=== PATIENT | female | born 1980 | race Caucasian/White ===

== ENCOUNTER 2017-04-13 13:12 | Emergency (ER) | payer BC ==
[2017-04-13 13:19] VITALS: BP 114/64
--- NOTE | 2017-04-13 13:52 | UC ---
Dizzy HPI HPI Summary: 36F presents with dizziness last night. She states that she has a feeling since the room is spinning since last night. The vertigo is worst with position changes and with turning her head. She states that she feels nauseous. She had a mild headache with it but took ibuprofen and has resolved. She denies any visual changes. She admits to ear fullness. She denies any fever, neck stiffness, or sinus congestion. no history of migraines. she has no family history of strokes. She is not any OCP. She denies any chest pain or SOB or abdominal pain. - History Of Current Complaint Chief Complaint: UCDizziness Stated Complaint: DIZZY Time Seen by Provider: 04/13/17 13:39 Hx Last Menstrual Period: 03/17/17 - Allergies/Home Medications Allergies/Adverse Reactions: Allergies Allergy/AdvReac Type Severity Reaction Status Date / Time Sulfamethoxazole Allergy Rash Verified 04/13/17 13:19 w/Trimethoprim [From Bactrim] PMH/Surg Hx/FS Hx/Imm Hx Endocrine History: Other Other Endocrine History: no DM Cardiovascular History: Other Other Cardiovascular History: no HTN - Surgical History Surgical History: Yes Surgery Procedure, Year, and Place: KIDNEY STONES 2011 - Family History Known Family History: Positive: None Family History: denies cardio vascular issues in family lineage - Social History Alcohol Use: Occasionally Substance Use Type: None Smoking Status (MU): Never Smoked Tobacco Review of Systems Constitutional: Negative Respiratory: Negative Cardiovascular: Negative Neurological: Other - dizziness All Other Systems Reviewed And Are Negative: Yes Physical Exam Triage Information Reviewed: Yes Appearance: Well-Appearing Vital Signs: Initial Vital Signs Temp 99.4 F 04/13/17 13:16 Pulse 82 04/13/17 13:16 Resp 18 04/13/17 13:16 BP 114/64 04/13/17 13:16 Pulse Ox 100 04/13/17 13:16 Vital Signs Reviewed: Yes Eyes: Positive: Conjunctiva Clear ENT: Positive: Normal ENT inspection, Pharynx normal, TMs normal Neck: Positive: Supple, Nontender, No Lymphadenopathy Respiratory: Positive: Lungs clear, Normal breath sounds Cardiovascular: Positive: RRR Neurological: Positive: Alert, Other: - CNII-XII, motor and sensory intact. neg hill-pike maneuver Dizzy Course/Dx - Course Course Of Treatment: 36F presents with dizziness last night. She states that she has a feeling since the room is spinning since last night. The vertigo is worst with position changes and with turning her head. She states that she feels nauseous. She had a mild headache with it but took ibuprofen and has resolved. She denies any visual changes. She admits to ear fullness. She denies any fever, neck stiffness, or sinus congestion. no history of migraines. normal neuro exam. neg stefan-hillpike. symptoms most consistent with vertigo so will treat with meclizine. explained that if wants further work up needs to go to ED. patient understands and agrees with plan. - Differential Dx/Diagnosis Differential Diagnosis/HQI/PQRI: Benign Paroxysmal Positional Vertigo, Labyrinthitis, Metabolic Abnormality, Other - vertigo Provider Diagnoses: vertigo Discharge - Discharge Plan Condition: Good Disposition: HOME Prescriptions: Meclizine TAB* [Antivert 12.5 TAB*] 25 mg PO TID PRN #15 tab PRN Reason: Vertigo Patient Education Materials: Vertigo (ED) Referrals: Roya Le NP [Primary Care Provider] - Additional Instructions: Take meclizine up to 4 tablets a day for vertigo Drink plenty of fluids Follow up with primary within 5 days Return to ED if develop any new or worsening symptoms
== END 2017-04-13 13:57 | disposition home or self-care (01) ==
LOC: UCEAST 13:12
DX: R42 Dizziness and giddiness (principal); Z88.2 Allergy status to sulfonamides
CPT/HCPCS: 99212; G0463

== ENCOUNTER 2017-10-13 09:11 | Emergency (ER) | payer BC ==
[2017-10-13] MEDS ORDERED: NS 0.9% 1000 ML* 1,000 ML IV ONE (10:09)
[2017-10-13 10:50] LABS: ABS Basophils 0.1 10^3/ul (0-0.2); ABS Eosinophils 0 10^3/ul (0-0.6); ABS Lymphocytes 1.2 10^3/ul (1.0-4.8); ABS Monocytes 0.6 10^3/ul (0-0.8); ABS Neutrophils 8.6 10^3/ul (1.5-7.7); ABS Nucleated RBC 0 10^3/ul; Eosinophil % 0.4 % (0-6); Hematocrit 44 % (35-47); Hemoglobin 14.7 g/dl (12.0-16.0); Lymphocyte % 11.8 % (25-47); Mean Corpuscular HGB Conc 33 g/dl (31-36); Mean Corpuscular Hemoglobin 31 pg (27-31); Mean Corpuscular Volume 93 fL (80-97); Mean Platelet Volume 9 um3 (7.4-10.4); Nucleated Red Blood Cells % 0; Platelet Count 240 10^3/ul (150-450); Red Blood Count 4.74 10^6/ul (4.0-5.4); Red Cell Distribution Width 13 % (10.5-15); White Blood Count 10.6 10^3/ul (3.5-10.8)
[2017-10-13 11:01] LABS: EGFR Non-African American 74.1 (>60)
[2017-10-13 11:05] LABS: Urine Appearance Clear; Urine Blood Negative (Negative); Urine Color Straw; Urine Ketones Negative (Negative); Urine Protein Negative (Negative); Urine Specific Gravity 1.004 (1.010-1.030); Urine Urobilinogen Negative (Negative)
--- NOTE | 2017-10-13 11:58 | ED ---
Dizziness - HPI Summary HPI Summary: Patient here with lightheaded sensation and change heart rate which started yesterday afternoon during a meeting at work (was interviewing a new executive) . She reports her staff was concerned she was having a panic attack. She admits she's had panic attacks in the past with the intermittent racing heart rate however she had chest pain at that time and does not have any at this time. She reports checking her heart rate on her Fit Bit yesterday during sx which was ranging from 30 bpm to 150 bpm. Reports she may not have eaten as much as usual yesterday but denies more caffeine than usual and no use of diet supplements, etc. She went to [address] [place] [address] and had an EKG as well as a chest x-ray. Per patient these were both normal. She was encouraged to go to the emergency department however she decided to go home instead. States she had something to eat and went to bed - heart rate issues resolved however lightheadedness persisted. She is here today for persistent lightheadedness. She reports this is worse with some movement/position change but not consistently. Denies rhinorrhea, sneezing, otalgia, headache, sinus pressure, sore throat, fever, chills, nausea, vomiting, chest pain, shortness of breath, abdominal pain, dysuria, vaginal discharge, flank pain, skin changes, numbness, weakness, tingling, issues with coordination, syncope or near syncope. Recent sick contacts include going to hospital to visit sick grandparent. Furthermore she denies heavy menstruation and no h/o anemia, bleeding or clotting d/o. Does not take OBC. No h/o head injury. - History Of Current Complaint Chief Complaint: EDDizziness Stated Complaint: LIGHT HEADED Time Seen by Provider: 10/13/17 10:35 Hx Obtained From: Patient - Allergies/Home Medications Allergies/Adverse Reactions: Allergies Allergy/AdvReac Type Severity Reaction Status Date / Time sulfamethoxazole Allergy Hives Verified 10/13/17 09:18 [From Bactrim] trimethoprim [From Bactrim] Allergy Hives Verified 10/13/17 09:18 Home Medications: Home Medications Ibuprofen TAB* [Motrin TAB* 800 MG] 800 mg PO Q6H PRN 10/13/17 [History Confirmed 10/13/17] PMH/Surg Hx/FS Hx/Imm Hx Previously Healthy: Yes Endocrine/Hematology History: Denies: Hx Anticoagulant Therapy, Hx Blood Disorders, Hx Blood Transfusions, Hx Bone Marrow Disease, Hx Diabetes, Hx Thyroid Disease, Hx Anemia, Hx Unexplained Bleeding, Hx Coagulopothy, Autoimmune Disease Cardiovascular History: Denies: Hx Aneurysm, Hx Congenital Heart Disease, Hx Hypotension, Hx Hypertension, Hx Valvular Heart Disease Respiratory History: Denies: Hx Asthma, Hx Chronic Obstructive Pulmonary Disease (COPD) GI History: Denies: Hx Gastroesophageal Reflux Disease, Hx Ulcer Sensory History: Reports: Hx Contacts or Glasses Opthamlomology History: Reports: Hx Contacts or Glasses Neurological History: Denies: Hx Headaches, Hx Migraine, Other Neuro Impairments/Disorders - no h/ o concussion Psychiatric History: Reports: Hx Anxiety - Cancer History Hx Chemotherapy: No Hx Radiation Therapy: No - Surgical History Surgery Procedure, Year, and Place: KIDNEY STONES 2011 Infectious Disease History: No Infectious Disease History: Denies: Hx Hepatitis, Hx Human Immunodeficiency Virus (HIV), History Other Infectious Disease, Traveled Outside the [place] in Last 30 Days - Family History Known Family History: Positive: Blood Disorder - Father w/ h/o "blood cancer" Family History: denies cardio vascular issues in family lineage - Social History Occupation: Employed Full-time Lives: With Family - lives w/ sister Alcohol Use: Occasionally Hx Substance Use: No Substance Use Type: Reports: None Hx Tobacco Use: No Smoking Status (MU): Never Smoked Tobacco Review of Systems Constitutional: Negative Eyes: Negative ENT: Negative Cardiovascular: Other - abnormal heart rate yesterday Respiratory: Negative Gastrointestinal: Negative Genitourinary: Negative Musculoskeletal: Negative Skin: Negative Neurological: Other - lightheaded Negative: Headache, Weakness, Paresthesia, Numbness, Syncope, Slurred Speech Positive: Anxious All Other Systems Reviewed And Are Negative: Yes Physical Exam Triage Information Reviewed: Yes Vital Signs On Initial Exam: Initial Vitals Temp Pulse Resp BP Pulse Ox 98.1 F 87 18 121/68 100 10/13/17 09:13 10/13/17 09:13 10/13/17 09:13 10/13/17 09:13 10/13/17 09:13 Vital Signs Reviewed: Yes Appearance: Positive: Well-Appearing, No Pain Distress, Well-Nourished Skin: Positive: Warm, Skin Color Reflects Adequate Perfusion, Dry Head/Face: Positive: Normal Head/Face Inspection Eyes: Positive: Normal, EOMI, TROY, Conjunctiva Clear ENT: Positive: Normal ENT inspection, Hearing grossly normal, Pharynx normal, TMs normal, Uvula midline. Negative: Nasal congestion, Nasal drainage, Tonsillar swelling, Tonsillar exudate, Muffled voice, Hoarse voice, Dental tenderness, Sinus tenderness Dental: Negative: Abscess @ Neck: Positive: Supple, Nontender, No Lymphadenopathy - No gross thyromegaly Respiratory/Lung Sounds: Positive: Clear to Auscultation, Breath Sounds Present. Negative: Rales, Rhonchi, Stridor, Tracheal Deviation, Wheezes, Unable to speak in full sentences, Fatigue Cardiovascular: Positive: Normal, RRR, Pulses are Symmetrical in both Upper and Lower Extremities, S1, S2. Negative: Murmur, Rub, Leg Edema Left, Leg Edema Right - Negative Homans bilaterally Abdomen Description: Positive: Nontender, No Organomegaly, Soft. Negative: Bruit, CVA Tenderness (R), CVA Tenderness (L), Pulsatile Mass Bowel Sounds: Positive: Present Musculoskeletal: Positive: Normal, Strength/ROM Intact Neurological: Positive: Normal, Sensory/Motor Intact, Alert, Oriented to Person Place, Time, CN Intact II-III, Facial Symmetry, Speech Normal. Negative: Vivian- Burkett [place] Test Psychiatric: Positive: Anxious - Polite and cooperative Diagnostics - Vital Signs Vital Signs Temp Pulse Resp BP Pulse Ox 10/13/17 11:30 66 20 109/49 100 10/13/17 11:00 75 13 109/62 100 10/13/17 10:51 67 20 108/60 85 10/13/17 10:00 109/58 10/13/17 09:54 72 20 114/67 100 10/13/17 09:52 70 24 111/59 100 10/13/17 09:48 16 10/13/17 09:45 69 21 106/64 100 10/13/17 09:42 69 100 10/13/17 09:13 98.1 F 87 18 121/68 100 - Laboratory Lab Results: Lab Results 10/13/17 10/13/17 10/13/17 Range/Units 10:25 10:25 10:25 WBC 10.6 (3.5-10.8) 10^3/ul RBC 4.74 (4.0-5.4) 10^6/ul Hgb 14.7 (12.0-16.0) g/dl Hct 44 (35-47) % MCV 93 (80-97) fL MCH 31 (27-31) pg MCHC 33 (31-36) g/dl RDW 13 (10.5-15) % Plt Count 240 (150-450) 10^3/ul MPV 9 (7.4-10.4) um3 Neut % (Auto) 81.8 (38-83) % Lymph % (Auto) 11.8 L (25-47) % [place] % (Auto) 5.5 (0-7) % Eos % (Auto) 0.4 (0-6) % Baso % (Auto) 0.5 (0-2) % Absolute Neuts (auto) 8.6 H (1.5-7.7) 10^3/ul Absolute Lymphs (auto) 1.2 (1.0-4.8) 10^3/ul Absolute Monos (auto) 0.6 (0-0.8) 10^3/ul Absolute Eos (auto) 0 (0-0.6) 10^3/ul Absolute Basos (auto) 0.1 (0-0.2) 10^3/ul Absolute Nucleated RBC 0 10^3/ul Nucleated RBC % 0 Sodium 138 (133-145) mmol/L Potassium 3.8 (3.5-5.0) mmol/L Chloride 106 (101-111) mmol/L Carbon Dioxide 26 (22-32) mmol/L Anion Gap 6 (2-11) mmol/L BUN 11 (6-24) mg/dL Creatinine 0.87 (0.51-0.95) mg/dL Est GFR ( Amer) 95.3 (>60) Est GFR (Non-Af Amer) 74.1 (>60) BUN/Creatinine Ratio 12.6 (8-20) Glucose 88 (70-100) mg/dL Lactic Acid 0.7 (0.5-2.0) mmol/L Calcium 9.6 (8.6-10.3) mg/dL Magnesium 2.2 (1.9-2.7) mg/dL Total Bilirubin 0.80 (0.2-1.0) mg/dL AST 15 (13-39) U/L ALT 14 (7-52) U/L Alkaline Phosphatase 37 (34-104) U/L Troponin I 0.00 (<0.04) ng/mL Total Protein 7.7 (6.4-8.9) g/dL Albumin 4.6 (3.2-5.2) g/dL Globulin 3.1 (2-4) g/dL Albumin/Globulin Ratio 1.5 (1-3) TSH 2.12 (0.34-5.60) mcIU/mL Beta HCG, Quant < 0.60 mIU/mL Urine Color Urine Appearance Urine pH (5-9) Ur Specific [place] (1.010-1.030) Urine Protein (Negative) Urine Ketones (Negative) Urine Blood (Negative) Urine Nitrate (Negative) Urine Bilirubin (Negative) Urine Urobilinogen (Negative) Ur Leukocyte Esterase (Negative) Urine Glucose (Negative) 10/13/17 Range/Units 10:50 WBC (3.5-10.8) 10^3/ul RBC (4.0-5.4) 10^6/ul Hgb (12.0-16.0) g/dl Hct (35-47) % MCV (80-97) fL MCH (27-31) pg MCHC (31-36) g/dl RDW (10.5-15) % Plt Count (150-450) 10^3/ul MPV (7.4-10.4) um3 Neut % (Auto) (38-83) % Lymph % (Auto) (25-47) % [place] % (Auto) (0-7) % Eos % (Auto) (0-6) % Baso % (Auto) (0-2) % Absolute Neuts (auto) (1.5-7.7) 10^3/ul Absolute Lymphs (auto) (1.0-4.8) 10^3/ul Absolute Monos (auto) (0-0.8) 10^3/ul Absolute Eos (auto) (0-0.6) 10^3/ul Absolute Basos (auto) (0-0.2) 10^3/ul Absolute Nucleated RBC 10^3/ul Nucleated RBC % Sodium (133-145) mmol/L Potassium (3.5-5.0) mmol/L Chloride (101-111) mmol/L Carbon Dioxide (22-32) mmol/L Anion Gap (2-11) mmol/L BUN (6-24) mg/dL Creatinine (0.51-0.95) mg/dL Est GFR ( Amer) (>60) Est GFR (Non-Af Amer) (>60) BUN/Creatinine Ratio (8-20) Glucose (70-100) mg/dL Lactic Acid (0.5-2.0) mmol/L Calcium (8.6-10.3) mg/dL Magnesium (1.9-2.7) mg/dL Total Bilirubin (0.2-1.0) mg/dL AST (13-39) U/L ALT (7-52) U/L Alkaline Phosphatase (34-104) U/L Troponin I (<0.04) ng/mL Total Protein (6.4-8.9) g/dL Albumin (3.2-5.2) g/dL Globulin (2-4) g/dL Albumin/Globulin Ratio (1-3) TSH (0.34-5.60) mcIU/mL Beta HCG, Quant mIU/mL Urine Color Straw Urine Appearance Clear Urine pH 7.0 (5-9) Ur Specific [place] 1.004 L (1.010-1.030) Urine Protein Negative (Negative) Urine Ketones Negative (Negative) Urine Blood Negative (Negative) Urine Nitrate Negative (Negative) Urine Bilirubin Negative (Negative) Urine Urobilinogen Negative (Negative) Ur Leukocyte Esterase Negative (Negative) Urine Glucose Negative (Negative) Result Diagrams: 10/13/17 10:25 10/13/17 10:25 Lab Statement: Any lab studies that have been ordered have been reviewed, and results considered in the medical decision making process. Dizzy Course/Dx - Course Course Of Treatment: Patient here with complaint of lightheadedness/dizziness which started yesterday. This was accompanied by intermittent fast heart rates. Reports she was seen at [address] [place] [address] and had an x-ray and EKG which were normal. Was advised to go to the emergency department however she decided to go home instead. Had something to eat and was able to go to bed reports heart rate improved however lightheadedness continued. She was assessed here today and all labs, vital signs and clinical exam appeared to be within normal limits. The definitive cause of her symptoms was not identified however we did discuss adequate nutrition intake and addressing her anxiety. She will follow-up with PCP later this week if symptoms continue to persist. Reviewed danger signs and symptoms of when to return to the emergency department. - Diagnoses Provider Diagnoses: Light-headed feeling Discharge - Discharge Plan Condition: Stable Disposition: HOME Patient Education Materials: Lightheadedness (ED), Anxiety (ED) Referrals: Roya Le NP [Primary Care Provider] - Additional Instructions: Eat balanced diet and stay hydrated Practice stress relief techniques. Follow-up with PCP later this week if symptoms persist. *If symptoms are worse, return to ED
[2017-10-13 12:33] VITALS: BP 107/52
== END 2017-10-13 12:32 | disposition home or self-care (01) ==
LOC: ED 09:11
DX: R42 Dizziness and giddiness (principal); Z88.3 Allergy status to other anti-infective agents; Z88.2 Allergy status to sulfonamides
CPT/HCPCS: 36415; 80053; 81003; 83605; 83735; 84443; 84484; 84702; 85025; 87502; 93005; 99283

== ENCOUNTER → 2018-08-07 15:33 | Emergency (ER) | payer BC ==
[~2018-08-07 15:33] MED LIST: NS 0.9% 1000 ML* 1,000 ML IV ONE
[2018-08-07 16:05] LABS: ABS Basophils 0.1 10^3/ul (0-0.2); ABS Eosinophils 0.2 10^3/ul (0-0.6); ABS Monocytes 0.5 10^3/ul (0-0.8); ABS Neutrophils 6.7 10^3/ul (1.5-7.7); ABS Nucleated RBC 0 10^3/ul; Eosinophil % 1.8 %; Hematocrit 46 % (35-47); Hemoglobin 15.4 g/dl (12.0-16.0); Lymphocyte % 20.8 %; Mean Corpuscular HGB Conc 33 g/dl (31-36); Mean Corpuscular Hemoglobin 31 pg (27-31); Mean Corpuscular Volume 93 fL (80-97); Mean Platelet Volume 8.3 fL (7.4-10.4); Nucleated Red Blood Cells % 0.1; Platelet Count 284 10^3/ul (150-450); Red Blood Count 4.95 10^6/ul (4.00-5.40); Red Cell Distribution Width 13 % (10.5-15); White Blood Count 9.4 10^3/ul (3.5-10.8)
--- NOTE | 2018-08-07 16:09 | ED ---
Dizziness - HPI Summary HPI Summary: This patient is a 37 year old F presenting to [facility] with a chief complaint of intermittent anxiety since September 2017. She came to [facility] in September 2017 and had a Holter monitor placed, but there were no findings. Patient visited her PCP for anxiety 3 weeks ago and was prescribed Inderal and Buspar, but patient does not take them regularly. She took Inderal at 08:00 today. The patient rates the pain 4/10 in severity. Patient reports feeling like her heart is racing, like her eyes are not feeling right, feeling like she is going to fall down, headache, and nausea. Patient denies abdominal pain, pelvic pain, urinary symptoms, cough, congestion, and masses in her neck. She reports that her heart rate will increase to 140-170 bpm according to her Apple Watch nearly every day. Patient reports a lot of stress in her life, from health issues in her family to a stressful work life. She gained 27 pounds last year. She used to work out frequently last year, but she stopped because she is afraid that she will faint. - History Of Current Complaint Chief Complaint: EDDizziness Stated Complaint: LIGHT HEADED/DIZZINESS/GENERAL Time Seen by Provider: 08/07/18 15:43 Hx Obtained From: Patient Onset/Duration: Still Present Timing: Intermittent Episode Lasting - Minutes Associated Signs And Symptoms: Positive: Nausea, Other: - Tachychardia, her eyes are not feeling right, feeling like she is giong to fall down, and headache. Denies abdominal pain, pelvic pain, urinary symptoms, cough, congestion, and masses in her neck. - Allergies/Home Medications Allergies/Adverse Reactions: Allergies Allergy/AdvReac Type Severity Reaction Status Date / Time sulfamethoxazole Allergy Hives Verified 10/13/17 09:18 [From Bactrim] trimethoprim [From Bactrim] Allergy Hives Verified 10/13/17 09:18 PMH/Surg Hx/FS Hx/Imm Hx Endocrine/Hematology History: Denies: Hx Anticoagulant Therapy, Hx Blood Disorders, Hx Blood Transfusions, Hx Bone Marrow Disease, Hx Diabetes, Hx Thyroid Disease, Hx Anemia, Hx Unexplained Bleeding Cardiovascular History: Denies: Hx Aneurysm, Hx Congenital Heart Disease, Hx Hypotension, Hx Hypertension, Hx Valvular Heart Disease Respiratory History: Denies: Hx Asthma, Hx Chronic Obstructive Pulmonary Disease (COPD) GI History: Denies: Hx Gastroesophageal Reflux Disease, Hx Ulcer Sensory History: Reports: Hx Contacts or Glasses Opthamlomology History: Reports: Hx Contacts or Glasses Neurological History: Denies: Hx Headaches, Hx Migraine, Other Neuro Impairments/Disorders - no h/ o concussion Psychiatric History: Reports: Hx Anxiety - Cancer History Hx Chemotherapy: No Hx Radiation Therapy: No - Surgical History Surgery Procedure, Year, and Place: KIDNEY STONES 2011 Infectious Disease History: No Infectious Disease History: Denies: Hx Hepatitis, Hx Human Immunodeficiency Virus (HIV), History Other Infectious Disease, Traveled Outside the [place] in Last 30 Days - Family History Known Family History: Positive: Blood Disorder - Father w/ h/o "blood cancer" Family History: denies cardio vascular issues in family lineage - Social History Alcohol Use: Occasionally Hx Substance Use: No Substance Use Type: Reports: None Hx Tobacco Use: No Smoking Status (MU): Never Smoked Tobacco Review of Systems Positive: Other - "eyes are not feeling right" Negative: Other - Congestion and masses in neck Positive: Other - Tachycardia Negative: Cough Positive: Nausea. Negative: Abdominal Pain Positive: no symptoms reported Negative: Other - pelvic pain Neurological: Other - feeling like she is going to fall down Positive: Headache All Other Systems Reviewed And Are Negative: Yes Physical Exam - Summary Physical Exam Summary: Appearance: Appearing concerned with a flat affect Skin: warm, dry, reflects adequate perfusion Head/face: normal Eyes: EOMI, TROY ENT: mucous membranes moist Neck: supple, non-tender Respiratory: CTA, breath sounds present Cardiovascular: RRR, pulses symmetrical Abdomen: non-tender, soft Bowel Sounds: present Musculoskeletal: normal, strength/ROM intact Neuro: normal, sensory motor intact, A&Ox3. GCS 15 Triage Information Reviewed: Yes Vital Signs On Initial Exam: Initial Vitals Temp Pulse Resp BP Pulse Ox 97.7 F 70 16 145/85 98 08/07/18 15:36 08/07/18 15:36 08/07/18 15:36 08/07/18 15:36 08/07/18 15:36 Vital Signs Reviewed: Yes Diagnostics - Vital Signs Vital Signs Temp Pulse Resp BP Pulse Ox 08/07/18 15:36 97.7 F 70 16 145/85 98 - Laboratory Result Diagrams: 08/07/18 15:58 08/07/18 15:52 Lab Statement: Any lab studies that have been ordered have been reviewed, and results considered in the medical decision making process. - CT Brain CT CT Interpretation Completed By: Radiologist Summary of CT Findings: 17:10. No intracranial mass or hemorrhage is noted. ED Physician has reviewed this imaging report. - EKG 16:23 Cardiac Rate: NL - 68 BPM EKG Rhythm: Sinus Rhythm ST Segment: Normal Ectopy: None Summary of EKG Findings: Short NM, without delta wave Re-Evaluation - Re-Evaluation 1 Re-Evaluation Time: 16:32 Comment: Patient reports to the nurse that she has also had headaches since last year. 2 Re-Evaluation Time: 17:11 Change: Improved Comment: Patient feels better after receiving fluids. Dizzy Course/Dx - Course Course Of Treatment: Nurse's note reviewed. Patient with a history of long- standing symptoms, now more than a year. She has intermittent palpitations and reports that her heart rate goes up to 170. She shows me on her watch that her heart rate rates 126 however on our monitoring and pulse taken by me pulse is 70. EKG is normal aside from shortened NM. There are no delta waves however. Remainder the blood testing was normal, as well as a brain CT. This was performed for chronic headache. GCS is 15. Recommend to take Inderal every day and follow-up with primary care physician closely. She likely should have outpatient event monitor performed as she had negative Holter monitor in the past. - Diagnoses Differential Diagnosis/HQI/PQRI: Anxiety, Dysrhythmia, Hypovolemia, Medication Reaction, Metabolic Abnormality, Vasovagal Reaction Provider Diagnoses: Malaise, Palpitation Discharge - Sign-Out/Discharge Documenting (check all that apply): Patient Departure - D/C - Discharge Plan Condition: Improved Disposition: HOME Patient Education Materials: Heart Palpitations (ED) Referrals: Ramirez Ortez MD [Medical Doctor] - Additional Instructions: Take the prescribed Inderal every day. See her doctor as soon as possible and have an event monitor ordered. This will allow you to monitor your heart rate over a longer time frame. Return with worse, new symptoms, passing out or other concerns as discussed. - Billing Disposition and Condition Condition: IMPROVED Disposition: Home - Attestation Statements Document Initiated by Scribe: Yes Documenting Scribe: Jered Nicole Provider For Whom Scribe is Documenting (Include Credential): Jairo Allen MD Scribe Attestation: I, Jered Nicole, scribed for Jairo Allen MD on 08/07/18 at 1739. Scribe Documentation Reviewed: Yes Provider Attestation: The documentation as recorded by the Jered parker accurately reflects the service I personally performed and the decisions made by me, Jairo Allen MD Status of Scribe Document: Viewed
[2018-08-07 16:32] LABS: Anion Gap 7 mmol/L (2-11); Blood Urea Nitrogen 9 mg/dL (6-24); CO2 Carbon Dioxide 23 mmol/L (22-32); Calcium 9.4 mg/dL (8.6-10.3); Chloride 107 mmol/L (101-111); EGFR Non-African American 70.8 (>60); Glucose 136 mg/dL (70-100); Potassium 3.9 mmol/L (3.5-5.0); Sodium 137 mmol/L (135-145)
[2018-08-07 16:39] LABS: HCG Pregnancy < 0.60 mIU/mL
[2018-08-07 17:14] LABS: TSH (Thyroid Stimulating Horm) 2.41 mcIU/mL (0.34-5.60)
[2018-08-07 17:14] LABS: Urine Appearance Clear; Urine Bilirubin Negative (Negative); Urine Blood Negative (Negative); Urine Color Straw; Urine Glucose Negative (Negative); Urine Ketones Negative (Negative); Urine Nitrite Negative (Negative); Urine Protein Negative (Negative); Urine Specific Gravity 1.004 (1.010-1.030); Urine Urobilinogen Negative (Negative)
[2018-08-07 17:19] LABS: Free T4 0.79 ng/dL (0.61-1.12)
[2018-08-07 17:26] VITALS: BP 113/66
== END | disposition home or self-care (01) ==
LOC: ED 15:33
DX: R53.81 Other malaise (principal); R00.2 Palpitations; R42 Dizziness and giddiness; R11.0 Nausea; R00.0 Tachycardia, unspecified; R51 Headache
CPT/HCPCS: 36415; 70450; 80048; 81003; 84439; 84443; 84702; 85025; 93005; 99282